=== PATIENT | male | born 1970 ===

== ENCOUNTER 2020-11-30 06:23 | Day surgery (SDC) | payer OTHER ==
[~2020-11-30 06:23] MED LIST: ADULT LOW DOSE81 M1 PO; ATORVASTATIN CA10 MG PO; AVAPRO300 MG PO; CLONAZEPAM1 MG PO; GLIMEPIRIDE2 MG; LANTUS SOL100 UNIT/1; NORVASC10 MG PO; TOPROL XL100 M1 PO
== END 2020-11-30 13:05 | disposition home or self-care (01) ==
LOC: CIR.AMB 06:23
PROVIDERS: ATTEND Surgery Surgery of the Hand
DX: M65.841 Other synovitis and tenosynovitis, right hand (principal); Z20.822 Contact with and (suspected) exposure to COVID-19